=== PATIENT | female | born 1965 | race Caucasian/White ===

== ENCOUNTER 2019-05-03 14:57 | Outpatient (CLI) | payer MEDICAID, SELFPAY ==
--- NOTE | 2019-05-03 14:48 | DI.RAD_ITS ---
EXAM: XR FOOT RT COMPLETE INDICATION: RIGHT BUNION. COMPARISON: No exams were available for comparison TECHNIQUE: 2D digital imaging was performed. FINDINGS: There is a plantar calcaneal spur. There is spurring at the dorsal aspect of the navicular cuneiform joints and tarsometatarsal joints. There is mild deformity of the distal 5th metatarsal consistent with an old healed fracture. IMPRESSION: Heel spur and degenerative changes.
--- NOTE | 2019-05-03 14:51 | DI.RAD_ITS ---
EXAM: XR KNEE LT 4V AP,LAT,LUIS,PAT INDICATION: S/P LEFT TKA. COMPARISON: XR KNEE COMPLETE MIN 4V LT from 02/10/2018 ORTHO KNEE BILAT 1 OR 2 VIEWS from 03/19/2018 XR KNEE 1 OR 2V LT from 08/11/2018 XR KNEE 1 OR 2V LT from 08/11/2018 XR KNEE COMPLETE MIN 4V LT from 12/25/2018 TECHNIQUE: 2D digital imaging was performed. FINDINGS: A total knee prosthesis is again noted. Femoral and tibial components are unremarkable. The patella appears laterally subluxed on the patellar view. The positioning appears roughly unchanged based on the sagittal projection. IMPRESSION: Lateral patellar subluxation.
== END 2019-05-03 15:17 ==
PROVIDERS: PCP Family Medicine; Visit Provider Physician Assistant
DX: M25.562 Pain in left knee (principal); Z96.652 Presence of left artificial knee joint; S83.012D Lateral subluxation of left patella, subsequent encounter; M21.611 Bunion of right foot; M77.31 Calcaneal spur, right foot; M19.071 Primary osteoarthritis, right ankle and foot
CPT/HCPCS: 73564; 73630

== ENCOUNTER 2019-05-31 00:57 | Outpatient (CLI) | payer MEDICAID, SELFPAY ==
--- NOTE | 2019-05-31 08:28 | DI.CT_ITS ---
EXAM: CT LOWER EXTREMITY LT WO CLINICAL HISTORY: Eval component position/rotation, continued pain, s/p total lt knee COMPARISON: XR KNEE 1 OR 2V LT from 08/11/2018 XR KNEE 1 OR 2V LT from 08/11/2018 XR KNEE COMPLETE MIN 4V LT from 12/25/2018 XR KNEE LT 4V AP,LAT,LUIS,PAT from 05/03/2019 FINDINGS: CT of the knee was performed with multi slice acquisition and multiplanar reconstruction. Comparison with prior radiographs of 12/25/2018, total knee arthroplasty again noted in position. Linear lucen cy of medial tibial plateau noted just subjacent to the prosthesis, unchanged in appearance from prio r study. No evidence of loosening or rotation. The femoral and tibial components appear normally al igned. Patellar component not ideally visualized but grossly unremarkable in alignment as well. IMPRESSION: Minimal linear osseous lucency of medial tibial plateau subjacent to tibial component knee arthroplas ty, however there is no gross evidence of rotation or loosening.
== END 2019-05-31 01:17 ==
PROVIDERS: PCP Family Medicine; Visit Provider Student in an Organized Health Care Education/Training Program
DX: Z96.652 Presence of left artificial knee joint (principal); M25.562 Pain in left knee
CPT/HCPCS: 73700